=== PATIENT | male | born 1975 | race Caucasian/White ===

== ENCOUNTER 2017-02-19 14:02 | Emergency (ER) | payer OTHER ==
[~2017-02-19] VITALS: Ht 175.3 cm; Wt 66.4 kg
[~2017-02-19 14:02] MED LIST: BXN500 PO
[2017-02-19 14:03] VITALS: TEMP 36.8; Ht 175.3 cm; Wt 66.4 kg
[2017-02-19] MEDS ORDERED: BUPIVACAINE 0.5 % 5 MG/1 ML MPF 30ML VIAL INFIL ONE (14:15)
[2017-02-19] MEDS ORDERED: XYLOCAINE 1%/SOD BICARB 20 ML VIAL INFIL ONE (14:15)
--- NOTE | 2017-02-19 14:15 | EMERGENCY ROOM VISIT NOTE ---
ED Visit Note First contact with patient: 14:07 CHIEF COMPLAINT: Left thumb laceration HISTORY OF PRESENT ILLNESS: Patient is a right-hand dominant 41-year-old white male who presents to the emergency department for evaluation of a laceration to the left thumb that he sustained at work just prior to arrival. He was using a utility knife to cut carpeting, when he slipped and cut the left thumb. He notes a constant, throbbing, 8/10 pain. The bleeding stopped shortly after the injury and there is no weakness or numbness the thumb. REVIEW OF SYSTEMS: Review of systems as per HPI. All other systems reviewed were negative. At least 6 systems reviewed. PMH: Electronic medical records are reviewed and summarized as above/below. See Problem List. Tetanus was last in 2008. SOCIAL HISTORY: Patient lives at home. Smoker. PHYSICAL EXAM: Vital Signs: Reviewed Nurse's notes. There is a 3 cm long laceration on the radial aspect of the left thumb, through the tip of the finger , extending just off of the nail. The edges are gaping apart. There is no foreign material in the wound and it looks clean. There is no active bleeding. No deep structures such as tendons or nerves are seen in the base of the wound. Extension, flexion and abduction and adduction of the thumb is full and strong. Sensation to pain and light touch is intact. EMERGENCY DEPARTMENT COURSE: Using sterile technique, a digital block was performed using a 2:1 mixture of 1% plain buffered lidocaine and 0.5% Sensorcaine. When adequate anesthesia was obtained, the wound was explored thoroughly. There was no evidence for foreign body. No nailbed involvement. The finger was then re-scrubbed with Betadine, irrigated with normal saline solution, and repaired using 4 and 5-0 nylon sutures. Total of 5 sutures were used. I do not suspect fracture, nerve or tendinous injury. Medication reconciliation: I attest that I have personally reviewed the patient' s current medication list. Blood pressure screening : Patient was found to have normal blood pressure on screening and does not require follow-up. Current/Historical Medications No Active Prescriptions or Reported Meds Allergies Coded Allergies: No Known Allergies (Unverified , 02/19/17) Vital Signs Date Time Temp Pulse Resp B/P (MAP) Pulse Ox O2 Delivery O2 Flow Rate FiO2 02/19/17 15:07 81 20 126/82 100 02/19/17 14:03 36.8 91 18 129/82 97 Room Air Departure Information Impression Primary Impression: Thumb laceration Prescriptions No Active Prescriptions or Reported Meds Referrals No Doctor, Assigned (PCP) Patient Instructions [facility] Additional Instructions Keep wound clean and dry. Do not allow any crusting or dried blood to accumulate on sutures. If this occurs, use a 1:1 solution of hydrogen peroxide/ water on a Q-tip to clean the wound. Use an antibiotic ointment for 3-4 days, then let wound dry. Suture removal in 12-14 days. Return sooner for any signs of infection (increasing redness, swelling, drainage). Ice and elevate for swelling and pain. Ibuprofen 600 mg and Tylenol 1000 mg every 6 hrs for pain. Problem Qualifiers Primary Impression: Thumb laceration Encounter type: initial encounter Damage to nail status: without damage Foreign body presence: without foreign body Laterality: left Qualified Codes : S61.012A - Laceration without foreign body of left thumb without damage to nail, initial encounter
[2017-02-19 15:07] VITALS: BP 126/82; PULSE 81; O2SAT 100
== END 2017-02-19 15:09 | disposition home or self-care (01) ==
LOC: C.EDB 14:03 → C.EDD 15:09
DX: S61.012A Laceration without foreign body of left thumb without damage to nail, initial encounter (principal); W45.8XXA Other foreign body or object entering through skin, initial encounter; F17.200 Nicotine dependence, unspecified, uncomplicated